=== PATIENT | female | born 1995 | race Caucasian/White ===

== ENCOUNTER 2021-06-12 20:24 | Emergency (ER) | payer MEDICAID ==
[2021-06-12] MEDS ORDERED: Ondansetron ODT 4 MG TAB ONE (21:00)
[2021-06-12] MEDS ORDERED: Dicyclomine 20 MG TAB ONE (21:01)
[2021-06-12 21:19] LABS: Hemoglobin 13.3 g/dL (12.0-16.0); Mean Corpuscular HGB CONC 34.6 g/dL (32.0-36.0); Mean Corpuscular Hemoglobin 30.5 pg (27.0-31.0); Mean Corpuscular Volume 88.3 fL (78.0-98.0); Red Blood Cell (RBC) Count 4.34 mill/uL (4.20-5.40); White Blood Cell (WBC) Count 9.6 thou/uL (4.8-10.8)
[2021-06-12 21:20] LABS: ALT (SGPT) 11 U/L (8-55); AST (SGOT) 11 U/L (5-34); Albumin 3.6 g/dL (3.5-5.0); Alkaline Phosphatase 41 U/L (40-110); Anion Gap 20 mmol/L (10-20); BUN (Urea Nitrogen) 12 mg/dL (7.0-18.7); Bilirubin, Total 0.3 mg/dL (0.2-1.2); Calc. Creatinine Clearance 0 mL/min (70-130); Calcium 8.9 mg/dL (7.8-10.44); Carbon Dioxide 22 mmol/L (22-29); Chloride 103 mmol/L (98-107); Globulin 3.1 g/dL (2.4-3.5); Glucose 138 mg/dL (70-105); Lipase 28 U/L (8-78); Mean Platelet Volume 7.1 fL (7.4-10.4); Platelet Count 313 thou/uL (130-400); Protein, Total 6.7 g/dL (6.0-8.3); RBC Distribution Width 12.2 % (11.5-14.5); Sodium 141 mmol/L (136-145)
[2021-06-12 21:21] LABS: Lymphocytes 32 % (21-51); Monocytes 6 % (0-10); Neutrophil 59 % (42-75)
[2021-06-12 21:22] LABS: Eosinophils 2 % (0-10)
[2021-06-12 21:23] LABS: Manual Diff?? NO
[2021-06-12 21:24] LABS: RBC Morphology Normal
[2021-06-12 21:29] LABS: Platelet Morphology Comment Appears Adequate
[2021-06-12 22:27] LABS: #Basophils 0.1 thou/uL (0.0-0.2); #Eosinphils 0.2 thou/uL (0.0-0.7); #Lymphocytes 3.1 thou/uL (1.20-3.40); #Monocytes 0.6 thou/uL (0.11-0.59); #Neutrophils 5.6 thou/uL (1.40-6.50); %Basophils 0.9 % (0.0-1.0); %Eosinophils 2.2 % (0.0-10.0); %Lymphocytes 32.4 % (21.0-51.0); %Monocytes 5.7 % (0.0-10.0); %Neutrophils 58.8 % (42.0-75.0)
== END 2021-06-12 21:35 | disposition home or self-care (01) ==
LOC: BURERS 20:24
DX: K80.50 Calculus of bile duct without cholangitis or cholecystitis without obstruction (principal); E11.9 Type 2 diabetes mellitus without complications; E78.5 Hyperlipidemia, unspecified; E78.00 Pure hypercholesterolemia, unspecified; E66.9 Obesity, unspecified; J45.909 Unspecified asthma, uncomplicated; E03.9 Hypothyroidism, unspecified; Z79.84 Long term (current) use of oral hypoglycemic drugs; Z79.899 Other long term (current) drug therapy
CPT/HCPCS: 36415; 80053; 83690; 85025; 99284; J0500; Q0162